=== PATIENT | male | born 1990 | race Caucasian/White ===

== ENCOUNTER 2021-01-18 01:27 | Emergency (ER) | payer OTHER ==
[~2021-01-18] VITALS: Ht 193 cm; Wt 93.0 kg
--- NOTE | 2021-01-18 01:53 | NUR ---
VIANCA FROM 09/25. [facility] DOES NOT WANT HIM AROUND THERE. TO ER BED 12. AAOX4. NOT IN RESP DISTRESS. VERBALIZED THAT HE IS SUICIDAL WITH PLAN TO STRANGLE HIMSELF WITH A BELT. DENIES BOTH AUDITORY AND VISUAL HALLUCINATIONS. DENIES HOMICIDAL IDEATION. PT IS SEEKING VOLUNTARY ADMISSION. PT IS IN GOWN AND SITTER WITHIN SIGHT. AWAITING MD FOR EVAL.
--- NOTE | 2021-01-18 02:02 | NUR ---
COVID SWAB COLLECTED AND SENT TO THE LAB.
[2021-01-18 02:10] LABS: BASOPHILS % (AUTO) 0.5 % (0.0-2.0); EOSINOPHILS % (AUTO) 1.9 % (0.0-6.0); HEMATOCRIT 43 % (39-51); HEMOGLOBIN 14.8 g/dL (13.5-17.5); LYMPHOCYTES % (AUTO) 32.6 % (20.0-44.0); MEAN CORPUSCULAR HGB CONC 35 g/dl (31.0-36.0); MEAN CORPUSCULAR VOLUME 90 fL (80-96); MONOCYTES # (AUTO) 0.5 K/uL (0.1-1.30); MONOCYTES % (AUTO) 8.5 % (2.0-12.0); NEUTROPHILS # (AUTO) 3.4 K/uL (1.8-8.9); NEUTROPHILS % (AUTO) 56.5 % (43.0-81.0); PLATELET COUNT (AUTO) 187 K/uL (150-450); RED BLOOD CELL COUNT(AUTO) 4.72 MIL/uL (4.5-6.0); WHITE BLOOD COUNT (AUTO) 6.1 K/uL (4.3-11.0)
[2021-01-18 02:12] LABS: CREATININE 0.9 mg/dL (0.6-1.3); POTASSIUM 3.4 mmol/L (3.5-5.1)
[2021-01-18 02:17] LABS: BILIRUBIN,URINE Negative (NEGATIVE); COLOR,URINE YELLOW (YELLOW); LEUKOCYTE ESTERASE ,URINE Trace (NEGATIVE); NITRITE, URINE Negative (NEGATIVE); PH,URINE 5.5 (5.0-8.0); PROTEIN,URINE Negative (NEGATIVE); UGLUCOSE Negative (NEGATIVE); UROBILINOGEN,URINE 0.2 EU/dL (0.2)
[2021-01-18 02:22] LABS: ALBUMIN 4.1 g/dL (3.4-5.0); BILIRUBIN,DIRECT 0.1 mg/dL (0.0-0.2); BILIRUBIN,TOTAL 0.4 mg/dL (0.2-1.0); TOTAL PROTEIN, SERUM 7.4 g/dL (6.4-8.2)
[2021-01-18 02:48] LABS: BACTERIA,URINE Few /HPF (None Seen); RBC,URINE 0-2 /HPF (0-2); SQUAMOUS EPITHELIAL CELL,UR Few /HPF (None Seen)
--- NOTE | 2021-01-18 03:00 | NUR ---
Patient is resting comfortably in bed with eyes closed. Easily aroused. VSS
--- NOTE | 2021-01-18 04:16 | NUR ---
pt sleeping, breathing evenly and unlabored. Pt attached to monitor and pox
--- NOTE | 2021-01-18 06:18 | NUR ---
faxed face sheet and clinicals to [facility] intake
--- NOTE | 2021-01-18 08:01 | NUR ---
THE PATIENT IS RECEIVED IN ER BED #12. THE PATIENT IS SLEEPING. RESPONSIVE TO TACTILE STIMULI. BREATHING EVEN AND UNLABORED. WILL CONTINUE TO MONITOR THE PATIENT.
--- NOTE | 2021-01-18 09:33 | NUR ---
THE PATIENT IS ALERT AND ORIENTED X4. HAVING BREAKFAST. TOLERATES PROVIDED FOOD WELL
--- NOTE | 2021-01-18 12:27 | NUR ---
PATIENT IS ACCEPTED AT [facility] UNDER DR ELIZABETH. BRANDON WILL CALL ONCE BED IS AVAILABLE.
--- NOTE | 2021-01-18 12:33 | NUR ---
[facility]
--- NOTE | 2021-01-18 12:51 | NUR ---
REPORT GIVEN TO CHELO FROM [facility] UNDER DR. CHERRY
--- NOTE | 2021-01-18 13:14 | NUR ---
"SS Consult: SS consult for SI. Pt. Is a 30-year-old male. Pt. demonstrates adequate insight to the reason for hospitalization. Per pt., he/she was brought to hospital by police due to SI. Pt. was oriented x3, alert, and cooperative. During interview, pt. was capable of following directions, and made appropriate eye-contact. DEUCE explored pt.s Hx of mental health and substance abuse. Pt. reported no Hx of mental health, SI/HI, denied AH/VH, paranoia or delusions. Per pt., he has a history of substance use. Per pt., he is currently using methamphetamine. Per pt., he has been to a mental health hospital in the past and they had helped him. Per pt., he tried hurting him self with a belt a few years ago. Pt. reported that he will hurt himself if he does not go to a [facility]. Pt. reported that he does not want to go back on his habits and wants to be referred to [facility]. DEUCE faxed over pt.s clinical information to [facility] [fax number: [phone]]. Pt. has been accepted. DEUCE explored pt.s living situation. Per pt., [place] [address] and has no adequate support. DEUCE provided pt. with resources and pt. accepted. Plan: DEUCE provided available resources and pt. accepted. DEUCE faxed pt.s clinical paperwork to [facility] [[facility] fax number: [phone]]. Per pt., he will use the resources once discharged. Resources Provided: Behavioral Health and Substance Abuse Referrals and Clinics for Screening [facility] [address] [place] [address] Not a long term, do not send patients there for shelters. Homeless resources. Appointment is needed. [phone] Services include comprehensive field-based mental health services, with case management and medication support services. Laundry, shower and locker facilities are available. APPLICATION PROCEDURE Call the central intake number for information about all programs provided by the agency and to schedule appointments. Homeless mentally ill people may be seen at [facility] on a walk-in basis. [facility] (Behavioral Health) [address] [facility], 2nd floor Need appointment INDU [place] [address] Main Number: [facility] (AFSP): Contact Sherita [facility] [address] [place] [address] Walk-in for psychiatric consultation HOURS: Sat-Sat 8am--7pm Saturdays 9am--5:30pm Closed on Sundays Clinic stated that walk-ins are welcome, but there will be a long wait. No appointments. Services: mental health services, medications, community service coordinator for resource linkage. [facility] (Behavioral Health) [facility] Walk-[place] [address] Operation Hours: SAT - SAT 8:00 a.m. - 5:00 p.m. Walk In Hours: SAT - SAT 8:00 a.m. - 5:00 p.m. Services by Age: Adults and Older Adults Mental Health Services: Field Capable Clinical Services (FCCS) Medication Support Mental Health Services Peer Support NOTE: [facility] Center 08/10 helpline: Adolescent and Childrens Psychiatric Treatment [facility] Coordinated Childrens Services Crisis stabilization, medication support mental health services [address] [address] Stephenson [facility] [phone] Appointment needed Counseling [facility] for Individual and Family Counseling Appointment needed 6[address] [facility] [phone] Counseling [place] [address] [facility] [address] Healthcare Clinics [facility] [address], Vaccines and infectious disease resource [address] Benny [address]ucker. INDU Hours: M, T, Th, F 8:30AM-4:30PM Walk-ins allowed Provide medical screening and pharmacy [facility] [address] [place] [address] Vaccines and infectious diseases Hours M-F 8AM-3:30PM Walk-ins allowed Provide medical screening and pharmacy [facility] [address] [facility] [place] [address] Hours 8AM-4:30PM Walk-ins allowed Provide medical screening and pharmacy Alcohol and Drug Treatment Programs [facility] Substance Abuse Self-helpline ([facility]) Substance Abuse Contact number . Call the hotline and the bead machine operator will screen and link individual to an appropriate program. Must have Medi-tricia or be Medi-tricia eligible. [facility] [address] [facility] [place] [address] [place] [address] Appointment needed Intake at 8.00 am but this does not mean acceptance [facility] ([place] based) [address] [facility] [address] (Six months program and need to work for 8 hrs per day while in treatment) [facility] (No insurance required) [address] [place] [address] [facility] [address] [facility] [phone] Closed on Saturday Open Saturday through Saturday 9 am -6 pm Saturday 10am 5 pm Closed on Saturday [facility] [phone] [place] [address] Prefer phone calls. They do allow walk-ins but prefer appointments. Substance Abuse resources provided included: [facility] Substance Abuse Self-Helpline ([facility]) ; [facility] [address] [facility] [place] [address] ; [address] [phone] ; [facility] [address] [facility] [address] ; [facility] [address] [facility] [address] ; [facility] [address] [facility] [phone] ; [address] [place] [phone] ; [facility] Substance Abuse Helpline(SAS)-[facility] ; [facility] Family Counseling ; [facility] [place]; [facility] [place]; [facility] [place]; [facility] [place]; [facility] [place]; [facility]; [facility] [place]; [facility], [facility]; Alcoholics Anonymous -SFV; Ur-Byml-Lqtusvw ; Marijuana Anonymous -SFV; Narcotics Anonymous www.na.org; Year-round shelters: [facility] [place] [address] [place], [place] [id number] ; [facility] [place] [address] [place] [address]; [facility] [id number] [facility] [address] Winter Shelters: [facility] Provider: Elana [facility] Address: [address] [facility] Center[facility], [address] # of Beds: 47 Population Served: [facility] 6 | [facility] Lorrie Ramos [place] Provider: Home at Last Address: [address] [facility], [address] # of Beds: 66 Population Served: Jaiden [employer] [place] Provider: First to Serve Address: [address] [facility], [address] # of Beds: 56 Population Served: Jaiden Wild YesikaBobby Mckeon Provider: SSG/[facility] Address: [address] [facility], [address] # of Beds: 49 Population Served: Coed SPA 8 | Amlin Anne Mckeon Provider: First to Serve Address: [address] [facility] Hospital[facility] Moreau # of Beds: 37 Population Served: Coed Hygiene: [facility]: [address] [place] ; [facility] [address] [facility] ; [facility] [address], [place] . Food Resources: [place] [facility] at [facility]- [address] [place]; Meet Each Need with Dignity ([facility]) [address] [facility] [place]; [facility] 285[address] [facility]; [facility] 2398 [facility]. Mental Health resources provided: [facility] [address] [place], [place] [id number] ; [facility] Health [place] [address] [facility] [address], [place], [place] [id number] ; [facility] Mental Health Urgent [facility] [address] [facility] [address] ; [facility] [address] [place], [place] [phone] Healthcare Clinics: [facility] [address] [facility], [address] [place]. [place] ; [facility] [address] [place] [address]; [facility] [address] [facility]. [place] [phone] Counseling--[facility] [address], [address] [place], [place] [address] (Specializes in in-depth psychotherapy for emotional distress: anxiety, depression, interpersonal conflicts, life transitions, childhood abuse) [facility] [address] [place], [place] [address] (Assist with solving problem marital difficulties, separation & divorce, aging parents, & grief, chronic & terminal illness) [facility] [address] [place], [place] 8838[address] (Deal with loss & grief, anxiety, marital difficulties) Homebound/Mental Health Services [address], [address] [place], [place] [id number] (Provide in-home mental services to people who are incapable of leaving their homes) [facility] for Needs of the Elderly Senior Service/Resource Center [address] [place] [address] [facility] [address] [place] [address] PSYCHIATRIC OUTPATIENT SERVICES [facility] Partial Hospitalization and Intensive Outpatient Program (Managed Care and [place] Only)[address] [address] Marcelino. [facility] [phone] [facility] Partial Hospitalization and Outpatient [id number] [address]. [address] [place], [place] [phone] [facility] Tpn48714 [address]. [address] [place], [place] [phone] [facility] Partial Hospitalization and Outpatient Aldirnf47235 [facility] Benny Rucker [phone] "
--- NOTE | 2021-01-18 13:52 | NUR ---
CALLED [facility] FOR TRANSPORT REQUESTED ETA OF [phone]
[2021-01-18 15:28] VITALS: BP 108/74
--- NOTE | 2021-01-18 17:50 | NUR ---
PT TRANSFERRED TO [facility] VIA [facility]. S.
== END 2021-01-18 17:54 ==
LOC: ER 01:30
DX: R45.851 Suicidal ideations (principal); F19.10 Other psychoactive substance abuse, uncomplicated; Z59.00 Homelessness unspecified; F17.200 Nicotine dependence, unspecified, uncomplicated; Z20.822 Contact with and (suspected) exposure to COVID-19
CPT/HCPCS: 36415; 80048; 80076; 80143; 80307; 80320; 81001; 85025; 87086; 87426; 99285; C9803; G0480